=== PATIENT | female | born 1965 | race African-American/Black ===

== ENCOUNTER 2020-07-09 17:48 | Emergency (ER) | payer OTHER ==
[~2020-07-09] VITALS: Ht 170.2 cm; Wt 100.0 kg
[2020-07-09 19:27] LABS: HEMATOCRIT. 41.8 % (36.0-48.0); HEMOGLOBIN. 13.3 g/dL (12.0-16.0); MEAN CORPUSCULAR HEMOGLOBIN 26.4 pg (28.0-32.0); MEAN CORPUSCULAR VOLUME 82.7 fL (81.0-99.0); RED BLOOD CELL COUNT 5.05 mill/uL (4.2-5.4); RED CELL DISTRIBUTION WIDTH 14.6 % (11.6-14.6)
[2020-07-09 19:32] LABS: CHLORIDE 103 mEq/L (98-107)
[2020-07-09 20:49] VITALS: BP 143/99
== END 2020-07-09 20:56 | disposition home or self-care (01) ==
LOC: ER 17:48
DX: R00.2 Palpitations (principal); R03.0 Elevated blood-pressure reading, without diagnosis of hypertension
CPT/HCPCS: 36415; 71045; 80053; 84484; 85025; 93005; 99285; Z7610